=== PATIENT | female | born 1960 | race Caucasian/White ===

== ENCOUNTER 2016-07-21 12:50 | Emergency (ER) | payer MEDICAID ==
[~2016-07-21] VITALS: Ht 160 cm; Wt 76.0 kg
[~2016-07-21 12:50] MED LIST: CHOL500050 PO; DOXY100T PO; FLUO20TA25 PO; NAPR500T3 PO; OMEP40CA6 PO; OXYC1TAB9 PO; PROP10TA PO; PROPRANOLOL; PROZAC; TRAM50TA2 PO; TRAZ50TA18 PO; TRAZODONE PO
[2016-07-21] MEDS ORDERED: SODIUM CHLORIDE 0.9% 1,000 ML IV ONE (13:57)
[2016-07-21] MEDS ORDERED: ONDANSETRON 2MG/ML, 2ML IVPush ONE (14:00)
[2016-07-21] MEDS ORDERED: MORPHINE SULFATE 4 MG/ML, 1ML IVPush PRN (14:00)
[2016-07-21] MEDS ORDERED: FAMOTIDINE 20 MG/2 ML IVP ONE (14:00)
[2016-07-21 14:29] LABS: BLOOD UREA NITROGEN 16 mg/dL (7-18)
[2016-07-21 14:32] LABS: ASPARTATE AMINO TRANSFERASE 110 U/L (15-37)
[2016-07-21] MEDS ORDERED: FAMOTIDINE 20 MG/2 ML ONE (14:50)
[2016-07-21] MEDS ORDERED: MORPHINE SULFATE 4 MG/ML, 1ML ONE (14:50)
[2016-07-21] MEDS ORDERED: ONDANSETRON 2MG/ML, 2ML ONE (14:50)
[2016-07-21 17:32] VITALS: BP 131/46
[2016-07-23] MEDS ORDERED: LOPE2CAP PO (07:44)
[2016-07-23] MEDS ORDERED: GABA-827 PO (07:44)
[2016-07-23] MEDS ORDERED: TRAZ100T15 PO (07:44)
[2016-07-23] MEDS ORDERED: BACL20TA PO (07:44)
== END 2016-07-21 17:46 | disposition home or self-care (01) ==
LOC: ED 17:40
DX: F10.180 Alcohol abuse with alcohol-induced anxiety disorder (principal); F10.14 Alcohol abuse with alcohol-induced mood disorder; Y90.9 Presence of alcohol in blood, level not specified; B19.20 Unspecified viral hepatitis C without hepatic coma
CPT/HCPCS: 36415; 76700; 80053; 81003; 83690; 85025; 93005; 96361; 96374; 96375; 99285; J2405; J7030; S0028

== ENCOUNTER 2017-10-08 08:34 | Inpatient (IN) | payer MEDICAID ==
[~2017-10-08] VITALS: Ht 162.6 cm; Wt 78.8 kg
[~2017-10-08 08:34] MED LIST changes: +BACL20TA PO; +GABA-827 PO; +LOPE2CAP PO; +NAPR-685 PO; -NAPR500T3 PO; +OXYC-432 PO; -OXYC1TAB9 PO; +TRAZ100T15 PO
[2017-10-08] MEDS ORDERED: SODIUM CHLORIDE FLUSH 10ML SYR IVF ONE (09:00)
[2017-10-08] MEDS ORDERED: MAALOX/HYOSCYAMINE/LIDOCAINE 45 ML BTL PO ONE (09:00)
[2017-10-08] MEDS ORDERED: ASPIRIN 81 MG TABLET CHEW PO ONE (09:00)
[2017-10-08] MEDS ORDERED: MAALOX/HYOSCYAMINE/LIDOCAINE 45 ML BTL ONE (09:07)
[2017-10-08] MEDS ORDERED: ASPIRIN 81 MG TABLET CHEW ONE (09:07)
[2017-10-08 09:40] LABS: BASOPHILS # (AUTO) 0.11 x10^3/uL (0-0.1); BASOPHILS % (AUTO) 1 % (0-1); EOSINOPHILS # (AUTO) 0.19 x10^3/uL (0-0.4); EOSINOPHILS % (AUTO) 2 % (1-7); LYMPHOCYTES # (AUTO) 3.19 x10^3/uL (1-3.4); LYMPHOCYTES % (AUTO) 31 % (22-44); MD NO; MEAN CORPUSCULAR HEMOGLOBIN 33.5 pg (27.0-34.8); MEAN CORPUSCULAR HGB CONC 34.2 g/dL (32.4-35.8); MEAN PLATELET VOLUME 8.9 fL (7.4-10.4); MONOCYTES # (AUTO) 0.49 x10^3/uL (0.2-0.8); MONOCYTES % (AUTO) 5 % (2-9); NEUTROPHILS # (AUTO) 6.44 x10^3/uL (1.8-6.8); NEUTROPHILS % (AUTO) 62 % (42-75); PLATELET COUNT 269 x10^3/uL (130-400); RED BLOOD COUNT 4.13 x10^6/uL (3.82-5.3)
[2017-10-08 09:52] LABS: ALANINE AMINOTRANSFERASE 87 U/L (12-78); ALBUMIN 3.5 g/dL (3.4-5.0); ANION GAP 11 mmol/L (5-15); CALCIUM 9.2 mg/dL (8.5-10.1); CHLORIDE 109 mmol/L (98-107); CREATININE 0.95 mg/dL (0.55-1.02)
[2017-10-08 09:56] LABS: ALKALINE PHOSPHATASE 97 U/L (45-117); BILIRUBIN,TOTAL 0.2 mg/dL (0.2-1.0); TOTAL PROTEIN 7.8 g/dL (6.4-8.2); TROPONIN I < 0.015 ng/mL (0.000-0.045)
[2017-10-08] MEDS ORDERED: SODIUM CHLORIDE FLUSH 10ML SYR IVF PRN (12:00)
[2017-10-08] MEDS: SODIUM CHLORIDE 0.9% 1,000 ML IV SCH ×2 (12:26→21:42)
[2017-10-08] MEDS ORDERED: hydrALAzine 20 MG/ML, 1ML IVPush PRN (12:30)
[2017-10-08] MEDS ORDERED: morphine SULFATE 10 MG/ML, 1ML IVPush PRN (12:30)
[2017-10-08] MEDS ORDERED: ONDANSETRON 2MG/ML, 2ML IVPush PRN (12:30)
[2017-10-08] MEDS ORDERED: ACETAMINOPHEN 325 MG TABLET PO PRN (12:30)
[2017-10-08 13:20] LABS: FREE T4 (FREE THYROXINE) 0.94 ng/dL (0.76-1.46); THYROID STIMULATING HORMONE 1.31 mIU/L (0.358-3.740)
[2017-10-08] MEDS: FLUOXETINE HCL 20 MG CAPSULE PO SCH (13:30)
[2017-10-08] MEDS: NICOTINE 21 MG/24 HR PATCH.TD24 TD SCH (13:31)
[2017-10-08] MEDS: ENOXAPARIN 40 MG/0.4 ML SQ SCH (13:31)
[2017-10-08 14:54] VITALS: BP 101/66
[2017-10-08 19:54] VITALS: BP 105/57
[2017-10-08] MEDS: TEMAZEPAM 15 MG CAPSULE PO PRN ×2 (21:42→22:36)
[2017-10-09 01:55] VITALS: BP 109/70
[2017-10-09] MEDS: SODIUM CHLORIDE 0.9% 1,000 ML IV SCH (05:20)
[2017-10-09 05:25] LABS: CHOL/HDL RATIO 4.2; LDL/HDL RATIO 2.4 (0.5-3.0)
[2017-10-09 06:54] VITALS: BP 99/56
[2017-10-09 07:33] LABS: TROPONIN I < 0.015 ng/mL (0.000-0.045)
[2017-10-09] MEDS ORDERED: REGADENOSON 0.4 MG/5 ML SYRINGE ONE (09:57)
[2017-10-09] MEDS: FLUOXETINE HCL 20 MG CAPSULE PO SCH (12:54)
[2017-10-09] MEDS: NICOTINE 21 MG/24 HR PATCH.TD24 TD SCH (12:54)
[2017-10-09] MEDS: ENOXAPARIN 40 MG/0.4 ML SQ SCH (12:55)
[2017-10-09] MEDS ORDERED: NICO-487 TD (13:16)
[2017-10-09] MEDS ORDERED: OMEP-110 PO (13:16)
[2017-10-09] MEDS ORDERED: SIMV20TA PO (13:19)
== END 2017-10-09 15:24 | disposition home or self-care (01) | DRG 281 ==
LOC: ED 09:37 → EDIP 11:31 → 5SO 12:58
PROVIDERS: ADMIT Hospitalist; ATTEND Internal Medicine
DX: I21.9 Acute myocardial infarction, unspecified (principal); E87.3 Alkalosis; B19.20 Unspecified viral hepatitis C without hepatic coma; R74.0 Nonspecific elevation of levels of transaminase and lactic acid dehydrogenase [LDH]; L40.9 Psoriasis, unspecified; F32.9 Major depressive disorder, single episode, unspecified; M94.0 Chondrocostal junction syndrome [Tietze]; F17.210 Nicotine dependence, cigarettes, uncomplicated; Z86.14 Personal history of Methicillin resistant Staphylococcus aureus infection; Z98.891 History of uterine scar from previous surgery; Z82.49 Family history of ischemic heart disease and other diseases of the circulatory system
CPT/HCPCS: 36415; 71045; 78452; 80053; 80061; 83690; 84439; 84443; 84484; 85025; 93005; 93017; 99285; J1650; J2785; A9502; C9898; J7030

== ENCOUNTER 2018-03-29 07:03 | Emergency (ER) | payer MEDICAID ==
[~2018-03-29] VITALS: Ht 162.6 cm; Wt 74.5 kg
[~2018-03-29 07:03] MED LIST changes: +NICO-487 TD; +OMEP-110 PO; +SIMV20TA PO; +TRAZ-137 PO; -TRAZ100T15 PO; -TRAZ50TA18 PO; +TRAZ50TA66 PO
[2018-03-29 08:04] LABS: BASOPHILS # (AUTO) 0.07 x10^3/uL (0-0.1); BASOPHILS % (AUTO) 1 % (0-1); EOSINOPHILS # (AUTO) 0.17 x10^3/uL (0-0.4); EOSINOPHILS % (AUTO) 2 % (1-7); LYMPHOCYTES # (AUTO) 3.26 x10^3/uL (1-3.4); LYMPHOCYTES % (AUTO) 31 % (22-44); MD NO; MEAN CORPUSCULAR HEMOGLOBIN 33.8 pg (27.0-34.8); MEAN CORPUSCULAR HGB CONC 34.4 g/dL (32.4-35.8); MEAN CORPUSCULAR VOLUME 98.4 fL (80-100); MEAN PLATELET VOLUME 8.5 fL (7.4-10.4); MONOCYTES # (AUTO) 0.91 x10^3/uL (0.2-0.8); MONOCYTES % (AUTO) 9 % (2-9); NEUTROPHILS % (AUTO) 59 % (42-75); PLATELET COUNT 249 x10^3/uL (130-400); RED BLOOD COUNT 4.18 x10^6/uL (3.82-5.3); RED CELL DISTRIBUTION WIDTH 15.2 % (9.6-15.2)
[2018-03-29 08:09] LABS: ALANINE AMINOTRANSFERASE 114 U/L (12-78); ALBUMIN 4.1 g/dL (3.4-5.0); ANION GAP 10 mmol/L (5-15); CALCIUM 9.1 mg/dL (8.5-10.1); CHLORIDE 107 mmol/L (98-107); CREATININE 0.85 mg/dL (0.55-1.02)
[2018-03-29 08:12] LABS: ALKALINE PHOSPHATASE 100 U/L (45-117); BILIRUBIN,TOTAL 0.6 mg/dL (0.2-1.0); TOTAL PROTEIN 7.9 g/dL (6.4-8.2)
[2018-03-29 08:22] LABS: INTERNATIONAL NORMALIZED RATIO 1.06 (0.93-1.1); PROTHROMBIN TIME 11.2 Seconds (9.6-11.5)
[2018-03-29 10:34] VITALS: BP 144/89
== END 2018-03-29 10:36 | disposition home or self-care (01) ==
LOC: ED 08:40
DX: L40.9 Psoriasis, unspecified (principal); M79.89 Other specified soft tissue disorders; Z88.0 Allergy status to penicillin; Z88.1 Allergy status to other antibiotic agents
CPT/HCPCS: 36415; 80053; 85025; 85610; 85730; 93970; 99284

== ENCOUNTER 2020-01-16 13:20 | Emergency (ER) | payer MEDICAID ==
[~2020-01-16] VITALS: Ht 162.6 cm; Wt 63.3 kg
[~2020-01-16 13:20] MED LIST changes: +OMEP40CA42 PO; -OMEP40CA6 PO; -OXYC-432 PO; +OXYC1TAB18 PO; -PROP10TA PO; +PROP10TA16 PO; -TRAZ-137 PO; +TRAZ-175 PO
[2020-01-16 13:24] VITALS: BP 116/66
[2020-01-16] MEDS ORDERED: METHOCARBAMOL 750 MG TABLET ONE (13:40)
[2020-01-16] MEDS ORDERED: KETOROLAC 30 MG/1 ML ONE (13:41)
--- NOTE | 2020-01-16 13:44 | NUR ---
PT MEDICATED PER MAR.
[2020-01-16] MEDS ORDERED: METHOCARBAMOL 750 MG TABLET PO ONE (14:00)
[2020-01-16] MEDS ORDERED: KETOROLAC 30 MG/1 ML IM ONE (14:00)
== END 2020-01-16 14:37 | disposition home or self-care (01) ==
LOC: ED 13:38
DX: S29.012A Strain of muscle and tendon of back wall of thorax, initial encounter (principal); G89.29 Other chronic pain; M54.2 Cervicalgia; M47.892 Other spondylosis, cervical region; M51.34 Other intervertebral disc degeneration, thoracic region; J45.909 Unspecified asthma, uncomplicated; Z87.891 Personal history of nicotine dependence; X58.XXXA Exposure to other specified factors, initial encounter; Y93.89 Activity, other specified; Y92.89 Other specified places as the place of occurrence of the external cause; Y99.8 Other external cause status
CPT/HCPCS: 72050; 72072; 96372; 99284; J1885

== ENCOUNTER 2020-03-24 10:30 | Emergency (ER) | payer MEDICAID ==
[~2020-03-24] VITALS: Ht 162.6 cm; Wt 61.4 kg
[~2020-03-24 10:30] MED LIST changes: -NICO-487 TD; +NICO-587 TD
[2020-03-24] MEDS ORDERED: SODIUM CHLORIDE 0.9% 1,000ML IVBOLUS ONE (11:00)
[2020-03-24] MEDS ORDERED: ONDANSETRON 2MG/ML, 2ML IVPush ONE (11:00)
[2020-03-24] MEDS ORDERED: MAALOX/HYOSCYAMINE/LIDOCAINE 45 ML BTL PO ONE (11:00)
[2020-03-24] MEDS ORDERED: SODIUM CHLORIDE FLUSH 10ML SYR IVF ONE (11:00)
[2020-03-24 11:10] LABS: BASOPHILS % (AUTO) 1 % (0-1); EOSINOPHILS % (AUTO) 1 % (1-7); LYMPHOCYTES % (AUTO) 29 % (22-44); MEAN CORPUSCULAR HEMOGLOBIN 32.8 pg (27.0-34.8); MEAN CORPUSCULAR HGB CONC 34.2 g/dL (32.4-35.8); MEAN PLATELET VOLUME 7.9 fL (7.4-10.4); MONOCYTES % (AUTO) 8 % (2-9); NEUTROPHILS % (AUTO) 62 % (42-75); PLATELET COUNT 383 x10^3/uL (130-400); RED BLOOD COUNT 4.71 x10^6/uL (3.82-5.3); RED CELL DISTRIBUTION WIDTH 13.8 % (9.6-15.2)
[2020-03-24 11:12] LABS: MD NO
[2020-03-24 11:23] LABS: ALANINE AMINOTRANSFERASE 26 U/L (12-78); ALBUMIN 4.1 g/dL (3.4-5.0); ANION GAP 9 mmol/L (5-15); CALCIUM 10.2 mg/dL (8.5-10.1); CHLORIDE 103 mmol/L (98-107)
[2020-03-24 11:25] LABS: ALKALINE PHOSPHATASE 105 U/L (45-117); BILIRUBIN,TOTAL 0.5 mg/dL (0.2-1.0); TOTAL PROTEIN 8.5 g/dL (6.4-8.2)
[2020-03-24] MEDS ORDERED: MAALOX/HYOSCYAMINE/LIDOCAINE 45 ML BTL ONE (11:31)
[2020-03-24] MEDS ORDERED: ONDANSETRON 2MG/ML, 2ML ONE (11:31)
--- NOTE | 2020-03-24 12:21 | NUR ---
Pt ambulatory to bathroom, steady gait.
[2020-03-24 12:46] VITALS: BP 124/74
== END 2020-03-24 12:48 | disposition home or self-care (01) ==
LOC: ED 11:08
DX: K22.6 Gastro-esophageal laceration-hemorrhage syndrome (principal); K29.21 Alcoholic gastritis with bleeding; R11.2 Nausea with vomiting, unspecified; F17.200 Nicotine dependence, unspecified, uncomplicated
CPT/HCPCS: 36415; 76700; 80053; 83690; 85025; 96361; 96374; 99284; J2405; J7030